=== PATIENT | male | born 1990 | race Hispanic/Latino ===

== ENCOUNTER 2016-04-15 00:27 | Emergency (ER) | payer OTHER ==
[2016-04-15] MEDS ORDERED: ONDANSETRON 4 MG ORAL DISINTEGRATING TAB (S0181) As Ordered ONE (00:42)
--- NOTE | 2016-04-15 01:05 | EDDOCDS ---
Physician Documentation [facility] Name: Remberto Upton Age: 26 yrs Sex: Male : 1990 Arrival Date: 04/15/2016 Time: 00:27 Bed Triage 1 [facility] Disposition: 04/15/16 00:59 Discharged to Home/Self Care. Impression: Nausea and vomiting, Diarrhea, unspecified. - Condition is Stable. - Discharge Instructions: Viral Gastroenteritis, [id number]. - Prescriptions for ZOFRAN ODT 4 mg - dissolve 1 tablet by ORAL route 4 times per day As needed do not chew, do not swallow whole; 10 tablet. - Medication Reconciliation, Local Pharmacy Hours form. - Follow [facility]: [facility] [place]; When: Today; Reason: Further diagnostic work-up, Recheck today's complaints, Continuance of care. - Problem is new. - Symptoms are unchanged. Historical: - Allergies: Aspirin (Anaphylaxis); - Home Meds: 1. none - PMHx: none; - PSHx: none; - Social history: Smoking status: Patient states was never smoker of tobacco. No barriers to communication noted, The patient speaks fluent Peruvian, Speaks appropriately for age. - Family history: Not pertinent. - : The pt / caregiver states he / she is not on anticoagulants. Home medication list is obtained from the patient. - Exposure Risk Screening:: None identified. Vital Signs: 04/15 00:36 BP 130 / 75; Pulse 98; Resp 16; Temp 101.3(O); Pulse Ox 97% ; Weight 83.46 kg / 184 ko2 lbs; Height 5 ft. 9 in. (175.26 cm); Pain 6/10; 00:36 Body Mass Index 27.17 (83.46 kg, 175.26 cm) ko2 MDM: 00:40 Ondansetron ODT Oral Disintegrating Tablet 4 mg PO once ordered. btw Administered Medications: 00:43 Drug: Ondansetron ODT 4 mg [ondansetron 4 mg disintegrating tablet (1 tabs)] Route: PO; ko2 Signatures: Mike Corbin PA PA btw Yesi DavisRN RN ko2 MTDD
--- NOTE | 2016-04-15 01:06 | EDDOCDS ---
Nurse's Notes [facility] Name: Remberto Upton Age: 26 yrs Sex: Male : 1990 Arrival Date: 04/15/2016 Time: 00:27 Bed Triage 1 [facility] Diagnosis[facility] Nausea and vomiting;Diarrhea, unspecified Presentation: 04/15 00:33 Presenting complaint: Patient states: ate tuna during lunch and has had a lot of ko2 stomach pain and fever since. Pt went to the gym after 6pm and got nauseated and has been sleeping and vomiting the rest of the night. Pt states he has vomited twice. Suicide/Homicide risk assessment- the patient denies having any suicidal and/or homicidal ideations and does not present with any other emotional, behavioral or mental health complaints. Status: The patient is an active duty digital service engineer. Transition of care: patient was not received from another setting of care. 00:33 Method Of Arrival: Walkin/Carried/Asstd ko2 00:39 Adult Sepsis Screening: The patient does not have new or worsening altered mentation. ko2 Patient's respiratory rate is less than 22. Systolic blood pressure is greater than 100. Patient has a qSOFA score of 0- Negative Sepsis Screen. 00:39 Acuity: YOBANY Level 3 ko2 Triage Assessment: 00:35 General: Appears in no apparent distress. Pain: Location: "whole body". HIV screening ko2 NA for this visit Offered previously. Neurological: Level of Consciousness is awake, alert. Respiratory: Airway is patent Respiratory effort is even, unlabored. Derm: Skin is normal. Historical: - Allergies: Aspirin (Anaphylaxis); - Home Meds: 1. none - PMHx: none; - PSHx: none; - Social history: Smoking status: Patient states was never smoker of tobacco. No barriers to communication noted, The patient speaks fluent Azeri, Speaks appropriately for age. - Family history: Not pertinent. - : The pt / caregiver states he / she is not on anticoagulants. Home medication list is obtained from the patient. - Exposure Risk Screening:: None identified. Screenin:00 Screening information is obtained from the patient. Fall risk: No risks identified. ko2 Assistance ADL's: requires no assistance with activities of daily living. Abuse/DV Screen: The patient / caregiver reports he/she is: not in a situation that causes fear, pain or injury. Nutritional screening: No deficits noted. Advance Directives: Currently, there is no health care proxy. There is no active DNR order. There is no living will. There is no Power of Individual Small Group Instructor. home support is adequate. Assessment: 01:00 General: See triage assessment. ko2 01:03 GI: Bowel sounds present X 4 quads. Abd is soft and non tender X 4 quads. ko2 Vital Signs: 00:36 BP 130 / 75; Pulse 98; Resp 16; Temp 101.3(O); Pulse Ox 97% ; Weight 83.46 kg; Height 5 ko2 ft. 9 in. (175.26 cm); Pain 6/10; 00:36 Body Mass Index 27.17 (83.46 kg, 175.26 cm) ko2 Vitals: 00:36 Log In Time: April 15, 2016 at 00:27. ko2 ED Course: 00:29 Patient visited by [employer]. pm4 00:[address] [facility] is Private Physician. pm4 00:29 Patient moved to Waiting pm4 00:32 Patient moved to Triage 1 ko2 00:40 Triage Initiated ko2 00:55 Mike Corbin PA is PHCP. btw 00:55 Zhou Hastings DO is Attending Physician. btw 00:55 Patient visited by Mike Corbin PA. btw 00:[address] [facility] is Referral Physician. btw 01:00 The patient / caregiver is instructed regarding the plan of care and ED course. ko2 01:00 No IV's were initiated during this patient's visit. No procedures done that require ko2 assistance. Administered Medications: 00:43 Drug: Ondansetron ODT 4 mg [ondansetron 4 mg disintegrating tablet (1 tabs)] Route: PO; ko2 Order Results: There are currently no results for this order. Outcome: 00:59 Discharge ordered by Provider. btw 01:03 Discharge Assessment: Patient awake, alert and oriented x 3. No cognitive and/or ko2 functional deficits noted. Patient verbalized understanding of disposition instructions. patient administered narcotics - no. The following High Risk Discharge criteria are identified: None. Discharged to home ambulatory. Condition: stable. Discharge instructions given to patient, Instructed on discharge instructions, follow up and referral plans. medication usage, Demonstrated understanding of instructions, medications, Pt was receptive of discharge instructions/ teaching. Prescriptions given X 1. No special radiology studies were completed. Property sent home with patient. 01:04 Patient left the ED. ko2 Signatures: Mike Corbin PA PA btw Ogden, KariRN RN ko2 [employer], Reg Reg pm4 MTDD
--- NOTE | 2016-04-17 02:05 | EDDOCDS ---
Physician Documentation [facility] Name: Remberto Upton Age: 26 yrs Sex: Male : 1990 Arrival Date: 04/15/2016 Time: 00:27 Bed Triage 1 [facility] Disposition: 04/15/16 00:59 Discharged to Home/Self Care. Impression: Nausea and vomiting, Diarrhea, unspecified. - Condition is Stable. - Discharge Instructions: Viral Gastroenteritis, [id number]. - Prescriptions for ZOFRAN ODT 4 mg - dissolve 1 tablet by ORAL route 4 times per day As needed do not chew, do not swallow whole; 10 tablet. - Medication Reconciliation, Local Pharmacy Hours form. - [facility]; When: Today; Reason: Further diagnostic work-up, Recheck today's complaints, Continuance of care. - Problem is new. - Symptoms are unchanged. Historical: - Allergies: Aspirin (Anaphylaxis); - Home Meds: 1. none - PMHx: none; - PSHx: none; - Social history: Smoking status: Patient states was never smoker of tobacco. No barriers to communication noted, The patient speaks fluent Prydeinig, Speaks appropriately for age. - Family history: Not pertinent. - : The pt / caregiver states he / she is not on anticoagulants. Home medication list is obtained from the patient. - Exposure Risk Screening:: None identified. Vital Signs: 04/15 00:36 BP 130 / 75; Pulse 98; Resp 16; Temp 101.3(O); Pulse Ox 97% ; Weight 83.46 kg / 184 ko2 lbs; Height 5 ft. 9 in. (175.26 cm); Pain 6/10; 00:36 Body Mass Index 27.17 (83.46 kg, 175.26 cm) ko2 MDM: 00:40 Ondansetron ODT Oral Disintegrating Tablet 4 mg PO once ordered. btw 01:10 Financial registration complete. hs2 01:10 PENDING SALE TO [facility] Payment Agreement was scanned into [employer] and attached to record. hs2 04/16 12:07 T-Sheet-- Draft Copy was scanned into [employer] and attached to record. gb Administered Medications: 04/15 00:43 Drug: Ondansetron ODT 4 mg [ondansetron 4 mg disintegrating tablet (1 tabs)] Route: PO; ko2 Signatures: Alicia Evans, Reg Reg gb Mike Corbin PA PA btw Ogden, Kari, RN RN ko2 Rebeca Mixon, Reg Reg hs2 The chart was reviewed and I authenticate all verbal orders and agree with the evaluation and treatment provided.Attachments: 01:10 PENDING S[facility] TO [facility] Payment Agreement hs2 04/16 12:07 T-Sheet-- Draft Copy gb Chart Complete MTDD
--- NOTE | 2016-04-17 02:05 | EDDOCDS ---
Physician Documentation [facility] Name: Remberto Upton Age: 26 yrs Sex: Male : 1990 Arrival Date: 04/15/2016 Time: 00:27 Bed Triage 1 [facility] Disposition: 04/15/16 00:59 Discharged to Home/Self Care. Impression: Nausea and vomiting, Diarrhea, unspecified. - Condition is Stable. - Discharge Instructions: Viral Gastroenteritis, [id number]. - Prescriptions for ZOFRAN ODT 4 mg - dissolve 1 tablet by ORAL route 4 times per day As needed do not chew, do not swallow whole; 10 tablet. - Medication Reconciliation, Local Pharmacy Hours form. - [facility]; When: Today; Reason: Further diagnostic work-up, Recheck today's complaints, Continuance of care. - Problem is new. - Symptoms are unchanged. Historical: - Allergies: Aspirin (Anaphylaxis); - Home Meds: 1. none - PMHx: none; - PSHx: none; - Social history: Smoking status: Patient states was never smoker of tobacco. No barriers to communication noted, The patient speaks fluent Turkmen, Speaks appropriately for age. - Family history: Not pertinent. - : The pt / caregiver states he / she is not on anticoagulants. Home medication list is obtained from the patient. - Exposure Risk Screening:: None identified. Vital Signs: 04/15 00:36 BP 130 / 75; Pulse 98; Resp 16; Temp 101.3(O); Pulse Ox 97% ; Weight 83.46 kg / 184 ko2 lbs; Height 5 ft. 9 in. (175.26 cm); Pain 6/10; 00:36 Body Mass Index 27.17 (83.46 kg, 175.26 cm) ko2 MDM: 00:40 Ondansetron ODT Oral Disintegrating Tablet 4 mg PO once ordered. btw 01:10 Financial registration complete. hs2 01:10 [facility] Payment Agreement was scanned into [employer] and attached to record. hs2 04/16 12:07 T-Sheet-- Draft Copy was scanned into [employer] and attached to record. gb Administered Medications: 04/15 00:43 Drug: Ondansetron ODT 4 mg [ondansetron 4 mg disintegrating tablet (1 tabs)] Route: PO; ko2 Signatures: Alicia Evans, Reg Reg gb Mike Corbin PA PA btw [place], Kari, RN RN ko2 Rebeca Mixon, Reg Reg hs2 The chart was reviewed and I authenticate all verbal orders and agree with the evaluation and treatment provided.Attachments: 01:10 [facility] Payment Agreement hs2 04/16 12:07 T-Sheet-- Draft Copy gb Chart Complete MTDD
--- NOTE | 2016-04-17 02:05 | EDDOCDS ---
Nurse's Notes [facility] Name: Remberto Upton Age: 26 yrs Sex: Male : 1990 Arrival Date: 04/15/2016 Time: 00:27 Bed Triage 1 [facility] Diagnosis: Nausea and vomiting;Diarrhea, unspecified Presentation: 04/15 00:33 Presenting complaint: Patient states: ate tuna during lunch and has had a lot of ko2 stomach pain and fever since. Pt went to the gym after 6pm and got nauseated and has been sleeping and vomiting the rest of the night. Pt states he has vomited twice. Suicide/Homicide risk assessment- the patient denies having any suicidal and/or homicidal ideations and does not present with any other emotional, behavioral or mental health complaints. Status: The patient is an active duty services account manager. Transition of care: patient was not received from another setting of care. 00:33 Method Of Arrival: Walkin/Carried/Asstd ko2 00:39 Adult Sepsis Screening: The patient does not have new or worsening altered mentation. ko2 Patient's respiratory rate is less than 22. Systolic blood pressure is greater than 100. Patient has a qSOFA score of 0- Negative Sepsis Screen. 00:39 Acuity: YOBANY Level 3 ko2 Triage Assessment: 00:35 General: Appears in no apparent distress. Pain: Location: "whole body". HIV screening ko2 NA for this visit Offered previously. Neurological: Level of Consciousness is awake, alert. Respiratory: Airway is patent Respiratory effort is even, unlabored. Derm: Skin is normal. Historical: - Allergies: Aspirin (Anaphylaxis); - Home Meds: 1. none - PMHx: none; - PSHx: none; - Social history: Smoking status: Patient states was never smoker of tobacco. No barriers to communication noted, The patient speaks fluent Maori, Speaks appropriately for age. - Family history: Not pertinent. - : The pt / caregiver states he / she is not on anticoagulants. Home medication list is obtained from the patient. - Exposure Risk Screening:: None identified. Screenin:00 Screening information is obtained from the patient. Fall risk: No risks identified. ko2 Assistance ADL's: requires no assistance with activities of daily living. Abuse/DV Screen: The patient / caregiver reports he/she is: not in a situation that causes fear, pain or injury. Nutritional screening: No deficits noted. Advance Directives: Currently, there is no health care proxy. There is no active DNR order. There is no living will. There is no Power of Statistical Reporting Analyst. home support is adequate. Assessment: 01:00 General: See triage assessment. ko2 01:03 GI: Bowel sounds present X 4 quads. Abd is soft and non tender X 4 quads. ko2 Vital Signs: 00:36 BP 130 / 75; Pulse 98; Resp 16; Temp 101.3(O); Pulse Ox 97% ; Weight 83.46 kg; Height 5 ko2 ft. 9 in. (175.26 cm); Pain 6/10; 00:36 Body Mass Index 27.17 (83.46 kg, 175.26 cm) ko2 Vitals: 00:36 Log In Time: April 15, 2016 at 00:27. ko2 ED Course: 00:29 Patient visited by [employer]. pm4 00:29 [facility] is Private Physician. pm4 00:29 Patient moved to Waiting pm4 00:32 Patient moved to Triage 1 ko2 00:40 Triage Initiated ko2 00:55 Mike Corbin PA is PHCP. btw 00:55 Zhou Hastings DO is Attending Physician. btw 00:55 Patient visited by Mike Corbin PA. btw 00:59 [facility] is Referral Physician. btw 01:00 The patient / caregiver is instructed regarding the plan of care and ED course. ko2 01:00 No IV's were initiated during this patient's visit. No procedures done that require ko2 assistance. 01:10 [facility] Payment Agreement was scanned into [employer] and attached to record. hs2 04/16 12:07 T-Sheet-- Draft Copy was scanned into [employer] and attached to record. gb Administered Medications: 04/15 00:43 Drug: Ondansetron ODT 4 mg [ondansetron 4 mg disintegrating tablet (1 tabs)] Route: PO; ko2 Order Results: There are currently no results for this order. Outcome: 00:59 Discharge ordered by Provider. btw 01:03 Discharge Assessment: Patient awake, alert and oriented x 3. No cognitive and/or ko2 functional deficits noted. Patient verbalized understanding of disposition instructions. patient administered narcotics - no. The following High Risk Discharge criteria are identified: None. Discharged to home ambulatory. Condition: stable. Discharge instructions given to patient, Instructed on discharge instructions, follow up and referral plans. medication usage, Demonstrated understanding of instructions, medications, Pt was receptive of discharge instructions/ teaching. Prescriptions given X 1. No special radiology studies were completed. Property sent home with patient. 01:04 Patient left the ED. ko2 Signatures: Alicia Evans, Reg Reg gb Mike Corbin PA PA btw [place], KariRN RN ko2 Rebeca Mixon, Reg Reg hs2 [employer], Reg Reg pm4 Chart Complete MTDD
== END 2016-04-15 01:04 | disposition home or self-care (01) ==
LOC: M ED 00:27
DX: R11.2 Nausea with vomiting, unspecified (principal); R19.7 Diarrhea, unspecified; Z88.6 Allergy status to analgesic agent